=== PATIENT | male | born 1950 | race Caucasian/White ===

== ENCOUNTER → 2017-11-16 15:52 | Outpatient (CLI) | payer OTHER ==
[2017-11-16 19:25] LABS: CALCIUM 8.4 mg/dL (8.5-10.1)
[2017-11-16 19:30] LABS: ANION GAP 12.7 mmol/L (8-16); CREATININE - SERUM 1.2 mg/dL (0.6-1.3); POTASSIUM - SERUM 4.7 mmol/L (3.5-5.1); VANCOMYCIN - RANDOM 9.7 ug/mL (10.0-20.0)
== END | disposition home or self-care (01) ==
LOC: D.LABREF 15:52
PROVIDERS: Internal Medicine Cardiovascular Disease
DX: E10.621 Type 1 diabetes mellitus with foot ulcer (principal); J45.909 Unspecified asthma, uncomplicated; I25.10 Atherosclerotic heart disease of native coronary artery without angina pectoris

== ENCOUNTER → 2017-11-30 12:50 | Outpatient (CLI) | payer OTHER ==
[2017-11-30 13:27] LABS: ANION GAP 11.9 mmol/L (8-16); CALCIUM 8.3 mg/dL (8.5-10.1); CARBON DIOXIDE 28.9 mmol/L (21.0-32.0); CREATININE - SERUM 1.1 mg/dL (0.6-1.3); POTASSIUM - SERUM 3.8 mmol/L (3.5-5.1); VANCOMYCIN - TROUGH 11.3 ug/mL (10.0-20.0)
== END | disposition home or self-care (01) ==
LOC: D.LABREF 12:50
PROVIDERS: Internal Medicine Cardiovascular Disease
DX: T81.4XXA Infection following a procedure, initial encounter (principal)